=== PATIENT | female | born 1980 | race Caucasian/White ===

== ENCOUNTER → 2020-05-23 12:52 | Outpatient (BNVA) | payer OTHER, SELFPAY | PROVIDERS: PCP Nurse Practitioner Family; Referring Provider Nurse Practitioner Family; Visit Provider Dietitian, Registered | DX: Z76.89 Persons encountering health services in other specified circumstances (principal) ==

== ENCOUNTER → 2020-06-27 08:12 | Outpatient (BNVA) | payer OTHER, SELFPAY | PROVIDERS: PCP Nurse Practitioner Family; Referring Provider Nurse Practitioner Family; Visit Provider Physician Assistant | DX: Z76.89 Persons encountering health services in other specified circumstances (principal) ==

== ENCOUNTER → 2020-07-25 08:43 | Outpatient (BNVA) | payer OTHER, SELFPAY | PROVIDERS: PCP Nurse Practitioner Family; Referring Provider Nurse Practitioner Family; Visit Provider Physician Assistant | DX: Z76.89 Persons encountering health services in other specified circumstances (principal) ==

== ENCOUNTER → 2020-09-24 08:26 | Outpatient (BNVA) | payer OTHER, SELFPAY | PROVIDERS: PCP Nurse Practitioner Family; Visit Provider Physician Assistant ==

== ENCOUNTER → 2021-01-02 14:36 | Outpatient (BNVA) | payer OTHER, SELFPAY | PROVIDERS: PCP Nurse Practitioner Family; Visit Provider Physician Assistant ==

== ENCOUNTER 2021-02-13 08:49 | Outpatient (REF) | payer OTHER, SELFPAY ==
[2021-02-13 09:55] LABS: Alanine Aminotransferase 14 U/L (0-31); Albumin Level 4.2 g/dL (3.5-5.0); Alkaline Phosphatase 70 U/L (39-117); Anion Gap 14 (12-20); Aspartate Amino Transferase 19 U/L (5-31); Bilirubin Total 0.5 mg/dL (0.0-1.0); Blood Urea Nitrogen 15 mg/dL (9-16); C Reactive Protein 0.62 mg/dL (< or = 0.50); Calcium 9.3 mg/dL (8.4-10.2); Carbon Dioxide 25 mmol/L (22-29); Chloride 104 mmol/L (96-108); Cholesterol 215 mg/dL; Estimated Glomerular Filt Rate > 60; Glucose Random 97 mg/dL (60-115); HDL Cholesterol 45 mg/dL; Iron 149 mcg/dL (30-160); LDL Cholesterol Calculated 140 mg/dl; Percent Iron Saturation 39 % (15-50); Potassium 4.2 mmol/L (3.3-5.1); Sodium 139 mmol/L (135-145); Total Iron Binding Capacity 381 mcg/dL (228-428); Total Protein 7.3 g/dL (6.5-8.0); Triglycerides 154 mg/dL; Unsaturated Iron Binding 232 ug/dL
[2021-02-13 10:18] LABS: Vitamin D 25-OH Total 27.4 ng/mL (>30)
[2021-02-13 10:41] LABS: Folate > 20.0 ng/mL (> or = 4.0); Vitamin B12 768 pg/mL (200-900)
[2021-02-14 09:52] LABS: Insulin Level Total 13.3 uIU/mL
[2021-02-17 13:27] LABS: Zinc 68 mcg/dL (60-130)
[2021-02-18 14:32] LABS: Vitamin A 50 mcg/dL (38-98); Vitamin B1 12 nmol/L (8-30)
== END 2021-02-13 08:50 | disposition home or self-care (01) ==
LOC: HO.LAB 08:49
PROVIDERS: Visit Provider Physician Assistant
DX: Z01.818 Encounter for other preprocedural examination (principal); E66.9 Obesity, unspecified; Z68.35 Body mass index [BMI] 35.0-35.9, adult; Z98.84 Bariatric surgery status
CPT/HCPCS: 36415; 80053; 80061; 82306; 82607; 82746; 83525; 83540; 84425; 84590; 84630; 86140

== ENCOUNTER → 2021-04-23 08:16 | Outpatient (BNVA) | payer OTHER, SELFPAY | PROVIDERS: Visit Provider Physician Assistant Surgical ==

== ENCOUNTER 2021-06-19 08:40 | Outpatient (REF) | payer OTHER, SELFPAY ==
--- NOTE | ~2021-06-19 | FL_ITS ---
EXAMINATION: FL UPPER GI SERIES CLINICAL INFORMATION: K21.9 - Gastro-esophageal reflux disease without esophagitis. Patient notes heartburn. Prior gastric sleeve surgery 2018. No dysphagia or abdominal pain. COMPARISON: GI series 05/23/2018 TECHNIQUE: Case discussed with referring provider CATARINO Wolf prior to exam. Prior to GI series, patient received 1 ounce thin barium over 7 minutes and then imaged with fluoroscopy. Subsequently, routine upper GI series is performed using fluoroscopic evaluation in addition to multiple fluoroscopic spot views. The patient is imaged both upright and prone and using both thick and thin barium sulfate along with effervescent granules. Fluoroscopy time: 1.6 minutes DAP: 16.204 Gycm2 Fluoroscopic spot images: 22 FINDINGS: The initial imaging following 1 ounce of barium over 7 minutes demonstrates no spontaneous gastroesophageal reflux. There is contrast in the stomach and proximal small bowel. No outlet obstruction. There is normal esophageal motility. There is no esophageal obstruction or stricture or ulceration. Mild physiologic herniation at the esophagogastric junction is seen during Valsalva maneuver but no overt hiatal hernia is demonstrated. No gastroesophageal reflux is demonstrated. There are surgical clips around the stomach consistent with the gastric sleeve surgery. The stomach shows no outlet obstruction and there is no thickening of folds or ulcer crater. The duodenal bulb is pliable and without ulcer crater or scarring. There are 2 or 3 small duodenal diverticula from the second and third portion duodenum similar to prior exam 2018. The post bulbar duodenum the jejunal mucosal pattern are unremarkable. FL/FL upper GI series IMPRESSION: 1. Normal esophageal motility. No hiatal hernia or reflux. 2. Status post gastric sleeve surgery. No outlet obstruction, ulcer, or thickening of folds. 3. A few small duodenal diverticula similar to 2018.
== END 2021-06-19 08:41 | disposition home or self-care (01) ==
LOC: HO.XRAY 08:40
PROVIDERS: Visit Provider Physician Assistant Surgical
DX: K21.9 Gastro-esophageal reflux disease without esophagitis (principal); E61.1 Iron deficiency
CPT/HCPCS: 74240

== ENCOUNTER → 2021-06-23 08:09 | Outpatient (BNVA) | payer OTHER, SELFPAY | PROVIDERS: Visit Provider Physician Assistant Surgical ==

== ENCOUNTER → 2021-07-16 14:49 | Outpatient (BNVA) | payer OTHER, SELFPAY | PROVIDERS: Visit Provider Dietitian, Registered | DX: E66.9 Obesity, unspecified (principal); Z68.33 Body mass index [BMI] 33.0-33.9, adult | CPT/HCPCS: 97803 ==

== ENCOUNTER 2021-10-06 15:09 | Outpatient (REF) | payer OTHER, SELFPAY ==
[2021-10-06 16:30] LABS: MANUAL DIFF FLAG NO
[2021-10-06 18:00] LABS: Basophils Percent Auto 0.3 % (0-2); Eosinophils Absolute Auto 0.1 X10*3/uL (0.0-0.4); Eosinophils Percent Auto 0.9 % (0-4); Hematocrit 39.9 % (37.0-47.0); Hemoglobin 13.5 g/dl (12.0-16.0); Imm Gran Abs Auto 0.02 X10*3/uL (0.00-0.03); Imm Gran Pct Auto 0.3 % (0.0-0.4); Lymphocytes Absolute Auto 2.6 X10*3/uL (1.2-4.9); Lymphocytes Percent Auto 40.2 % (20-40); Mean Corpuscular HGB Conc 33.8 g/dl (31.0-35.0); Mean Corpuscular Hemoglobin 30.6 pg (27.0-33.0); Mean Corpuscular Volume 90.5 fL (80.0-98.0); Mean Platelet Volume 10.2 fL (9.4-12.3); Monocytes Absolute Auto 0.5 X10*3/uL (0.1-1.2); Monocytes Percent Auto 7.5 % (2-11); Neutrophils Absolute Auto 3.3 x10*3/uL (2.0-8.3); Neutrophils Percent Auto 50.8 % (45-73); Platelet Count 287 X10*3/uL (160-400); Red Blood Count 4.41 X10*6/uL (4.20-5.50); Red Cell Distribution Width 12.6 % (11.0-16.0); White Blood Count 6.4 X10*3/uL (4.8-10.8)
[2021-10-06 18:07] LABS: Estimated Average Glucose 100 mg/dL; Hemoglobin A1c % 5.1 %
[2021-10-06 18:24] LABS: Anion Gap 14 (12-20); Blood Urea Nitrogen 15 mg/dL (9-16); C Reactive Protein 0.75 mg/dL (< or = 0.50); Carbon Dioxide 29 mmol/L (22-29); Chloride 99 mmol/L (96-108); Cholesterol 241 mg/dL; Estimated Glomerular Filt Rate > 60; Glucose Random 82 mg/dL (60-115); HDL Cholesterol 47 mg/dL; Iron 86 mcg/dL (30-160); LDL Cholesterol Calculated 149 mg/dl; Percent Iron Saturation 23 % (15-50); Sodium 138 mmol/L (135-145); Total Iron Binding Capacity 368 mcg/dL (228-428); Triglycerides 227 mg/dL; Unsaturated Iron Binding 282 ug/dL
[2021-10-06 18:47] LABS: Ferritin 201 ng/mL (10-250); TSH reflex Free T4 1.64 uIU/mL (0.32-4.0); Vitamin D 25-OH Total 22.4 ng/mL (>30)
[2021-10-06 19:19] LABS: Folate 12.4 ng/mL (> or = 4.0); Vitamin B12 667 pg/mL (200-900)
[2021-10-08 15:06] LABS: PTHI 25 pg/mL (14-64)
[2021-10-09 01:31] LABS: Zinc 63 mcg/dL (60-130)
[2021-10-10 11:30] LABS: Vitamin B1 12 nmol/L (8-30)
[2021-10-10 21:21] LABS: Vitamin A 59 mcg/dL (38-98)
== END 2021-10-06 15:10 | disposition home or self-care (01) ==
LOC: HO.LAB 15:09
PROVIDERS: Visit Provider Physician Assistant Surgical
DX: E66.9 Obesity, unspecified (principal); Z98.84 Bariatric surgery status
CPT/HCPCS: 36415; 80048; 80061; 82306; 82607; 82728; 82746; 83036; 83540; 83970; 84425; 84443; 84590; 84630; 85025; 86140

== ENCOUNTER 2021-10-29 10:05 | Outpatient (REF) | payer OTHER, SELFPAY ==
[2021-10-30 11:10] LABS: H Pylori Breath Test Negative (Negative)
== END 2021-10-29 10:06 | disposition home or self-care (01) ==
LOC: HO.LNP 10:05
PROVIDERS: Visit Provider Physician Assistant Surgical
DX: Z01.818 Encounter for other preprocedural examination (principal)
CPT/HCPCS: 83013

== ENCOUNTER → 2021-11-16 14:52 | Outpatient (BNVA) | payer OTHER, SELFPAY | PROVIDERS: Visit Provider Physician Assistant Surgical | DX: E66.9 Obesity, unspecified (principal); Z98.84 Bariatric surgery status ==

== ENCOUNTER 2022-02-17 10:57 | Outpatient (REF) | payer OTHER, SELFPAY ==
[2022-02-17 12:16] LABS: Vitamin D 25-OH Total 43.3 ng/mL (>30)
== END 2022-02-17 10:58 | disposition home or self-care (01) ==
LOC: HO.LAB 10:57
PROVIDERS: Visit Provider Physician Assistant Surgical
DX: E55.9 Vitamin D deficiency, unspecified (principal)
CPT/HCPCS: 36415; 82306

== ENCOUNTER → 2022-08-06 13:24 | Outpatient (BNVA) | payer OTHER, SELFPAY | PROVIDERS: PCP Nurse Practitioner Family; Visit Provider Physician Assistant Surgical | DX: E66.9 Obesity, unspecified (principal) ==